=== PATIENT | male | born 1935 | race Caucasian/White ===

== ENCOUNTER 2019-02-03 17:45 | Inpatient (IN) | payer MEDICARE, OTHER ==
[~2019-02-03] VITALS: Ht 177.8 cm; Wt 84.1 kg
[2019-02-03 21:45] LABS: BASOPHILS 0.1 % (0-2); EOSINOPHILS 0 % (0-7); HEMATOCRIT 33.2 % (42.0-54.0); IMMATURE GRANULOCYTES 0.4 % (0-5); LYMPHOCYTES 4.5 % (15-50); MCH 30.4 pg (26.0-34.0); MCHC 33.1 g/dL (31.0-37.0); MCV 91.7 fL (80.0-100.0); MEAN PLATELET VOLUME 10.3 fL (7.4-10.4); MONOCYTES 7.6 % (2-11); NEUTROPHILS 87.4 % (40-80); PLATELET COUNT 344 10x3/uL (130-400); RBC 3.62 10x6/uL (4.20-6.10); RDW 13.2 % (11.5-14.5); WBC 19.8 10x3/uL (4.8-10.8)
[2019-02-03 21:55] LABS: APPEARANCE CLEAR (CLEAR); BILIRUBIN NEGATIVE (NEGATIVE); COLOR YELLOW (YELLOW); GLUCOSE 250 mg/dL (NEGATIVE); KETONE NEGATIVE (NEGATIVE); NITRITE NEGATIVE (NEGATIVE); PROTEIN NEGATIVE (NEGATIVE); SPECIFIC GRAVITY 1.015 (1.005-1.020); UROBILINOGEN NORMAL (NORMAL)
[2019-02-03 21:58] LABS: APTT 28.8 SECONDS (22.8-39.4); CALC OSMOLALITY 279 mosm/kg (275-300); CALCIUM 9.3 mg/dL (8.5-10.1); CARBON DIOXIDE 22.4 mmol/L (21.0-32.0); CHLORIDE - SERUM 101 mmol/L (98-107); CREATININE - SERUM 1.2 mg/dL (0.6-1.3); GLUCOSE 164 mg/dL (74-106); INR 1.16 (0.85-1.17); POTASSIUM - SERUM 3.9 mmol/L (3.5-5.1); PROTIME 14.2 SECONDS (11.6-15.0); SODIUM 137 mmol/L (136-145); UREA NITROGEN 19 mg/dL (7-18); eGFR NON AFRICAN AMERICAN 61 mL/min (90-120)
[2019-02-03 22:18] LABS: ALBUMIN 3.3 g/dL (3.4-5.0); ALKALINE PHOSPHATASE 80 U/L (46-116); ALT (SGPT) 32 U/L (10-68); BILIRUBIN - TOTAL 0.84 mg/dL (0.2-1.3); CKMB 2.3 U/L (0.0-3.6); CREATINE KINASE 240 UL (21-232); PRO BNP 719 pg/mL (0-450); PROTEIN - SERUM 8.1 g/dL (6.4-8.2)
[2019-02-03 22:20] LABS: TROPONIN-I < 0.017 ng/mL (0.000-0.060)
--- NOTE | 2019-02-03 23:54 | NUR ---
NEIGHBOR, FRANK CHINO,
[2019-02-04 01:22] VITALS: BP 158/69; BMI 26.6
[2019-02-04 04:56] VITALS: BP 164/72
--- NOTE | 2019-02-04 05:15 | NUR ---
[id number] rec'd in bed lying on left side.resp shallow no resp. distress observed noted will continue to monitor for any chges. in resp. status and follow current plan of care.
[2019-02-04 06:22] LABS: BASOPHILS 0 % (0-2); EOSINOPHILS 0 % (0-7); HEMATOCRIT 31.6 % (42.0-54.0); HEMOGLOBIN 10.4 g/dL (13.5-17.5); IMMATURE GRANULOCYTES 0.2 % (0-5); LYMPHOCYTES 3.5 % (15-50); MCH 29.8 pg (26.0-34.0); MCHC 32.9 g/dL (31.0-37.0); MCV 90.5 fL (80.0-100.0); MEAN PLATELET VOLUME 10.5 fL (7.4-10.4); MONOCYTES 1.4 % (2-11); NEUTROPHILS 94.9 % (40-80); PLATELET COUNT 300 10x3/uL (130-400); RBC 3.49 10x6/uL (4.20-6.10); RDW 13.1 % (11.5-14.5); WBC 16.9 10x3/uL (4.8-10.8)
[2019-02-04 06:34] LABS: ALBUMIN 2.7 g/dL (3.4-5.0); ALKALINE PHOSPHATASE 69 U/L (46-116); ALT (SGPT) 23 U/L (10-68); BILIRUBIN - TOTAL 0.81 mg/dL (0.2-1.3); CALC OSMOLALITY 278 mosm/kg (275-300); CALCIUM 8.7 mg/dL (8.5-10.1); CHLORIDE - SERUM 103 mmol/L (98-107); GLUCOSE 203 mg/dL (74-106); MAGNESIUM - SERUM 2.2 mg/dL (1.8-2.4); PHOSPHOROUS 3.3 mg/dL (2.5-4.9); POTASSIUM - SERUM 4.1 mmol/L (3.5-5.1); PROTEIN - SERUM 6.9 g/dL (6.4-8.2); SODIUM 136 mmol/L (136-145); UREA NITROGEN 15 mg/dL (7-18); eGFR NON AFRICAN AMERICAN 76 mL/min (90-120)
--- NOTE | 2019-02-04 08:15 | NUR ---
REPORT RECIEVED. RR EVEN AND UNLABORED. NO DISTRESS NOTED. PT HAS A R AC PIV INFUSING LR@125. BED LOCKED AND IN LOWEST POSITION, CALL LIGHT WITHIN REACH. WILL CTM
--- NOTE | 2019-02-04 10:56 | NUR ---
PTS VALUBLES TAKEN TO SAFE DUE TO PT BEING MILDLY CONFUSED.
[2019-02-04 12:20] VITALS: BP 139/68
[2019-02-04 12:27] VITALS: BP 108/41
[2019-02-04 14:17] VITALS: Ht 177.8 cm; Wt 84.1 kg
[2019-02-04 15:58] VITALS: BP 136/49
--- NOTE | 2019-02-04 16:09 | NUR ---
I have reviewed this patient and I concur with the Shift Assessment completed by the Licensed Practical Nurse today this shift.
--- NOTE | 2019-02-04 18:31 | NUR ---
PT CONFUSED AND PULLED IV OUT. RESITED IV TO L FA.
--- NOTE | 2019-02-04 19:54 | NUR ---
REPORT RECEIVED, WILL CONTINUE POC. PATIENT IS ALERT AND CONFUSED, COMING BACK FROM BATHROOM WITH 4TH GRADE MATH TEACHER. NO S/S OF DISTRESS OBSERVED, RR EVEN AND UNLABORED ON ROOM AIR. PATIENT DENIES NEEDS AT THIS TIME. CL IN REACH, BED LOCKED AND LOWERED. BRAYAN ALARM ON AND WORKING. WILL CTM.
[2019-02-04 20:39] VITALS: BP 157/66
--- NOTE | 2019-02-05 00:08 | NUR ---
PATIENT REPEATEDLY GETTING UP OUT OF BED, EDUCATED TO USE CALL LIGHT FOR HELP. VERY RESTLESS AND AGITATED. PAGED JARRETT DUKE, ORDERS RECEIVED. ADMINISTERED BENADRYL PER ORDERS. CL IN REACH, BED LOCKED AND LOWERED, BRAYAN ALARM ON.
[2019-02-05 00:15] VITALS: BP 150/60
--- NOTE | 2019-02-05 03:09 | NUR ---
I have reviewed this patient and I concur with the Shift Assessment completed by the Licensed Practical Nurse today this shift.
--- NOTE | 2019-02-05 04:20 | NUR ---
PATIENT MEDICATED FOR PAIN AT THIS TIME.
[2019-02-05 04:45] VITALS: BP 141/60
[2019-02-05 05:47] LABS: HEMATOCRIT 29.5 % (42.0-54.0); HEMOGLOBIN 9.7 g/dL (13.5-17.5); MCH 29.5 pg (26.0-34.0); MCHC 32.9 g/dL (31.0-37.0); MCV 89.7 fL (80.0-100.0); MEAN PLATELET VOLUME 9.9 fL (7.4-10.4); PLATELET COUNT 304 10x3/uL (130-400); RBC 3.29 10x6/uL (4.20-6.10); WBC 21.1 10x3/uL (4.8-10.8)
--- NOTE | 2019-02-05 06:12 | NUR ---
PATIENT REPEATEDLY GETTING UP THROUGH THE NIGHT. RIPPED IV TUBING IN HALF. REPLACED PRIMARY TUBING. EDUCATED PATIENT TO STAY IN BED AND TO USE HIS CALL LIGHT. CL IN REACH, BED LOCKED AND LOWERED, BRAYAN ALARM ON. WILL CTM.
[2019-02-05 06:16] LABS: CALC OSMOLALITY 282 mosm/kg (275-300); CALCIUM 8.7 mg/dL (8.5-10.1); CARBON DIOXIDE 20.7 mmol/L (21.0-32.0); CHLORIDE - SERUM 105 mmol/L (98-107); CHOL - HDL RATIO 2.2 ratio (2.3-4.9); CHOLESTEROL, TOTAL 101 mg/dL (0-200); GLUCOSE 167 mg/dL (74-106); HDL CHOLESTEROL 45 mg/dL (32-96); LDL CHOLESTEROL 48 mg/dL (0-100); LDL-HDL RATIO 1.1 ratio (1.5-3.5); MAGNESIUM - SERUM 2.1 mg/dL (1.8-2.4); PHOSPHOROUS 2.8 mg/dL (2.5-4.9); SODIUM 138 mmol/L (136-145); TRIGLYCERIDE 40 mg/dL (30-200); eGFR NON AFRICAN AMERICAN 76 mL/min (90-120)
[2019-02-05 06:27] LABS: UREA NITROGEN 21 mg/dL (7-18)
--- NOTE | 2019-02-05 07:33 | NUR ---
PT AWAKE AND VERY CONFUSED WHEN I ENTERED ROOM. BED ALARM GOING OFF, PT WAS UP IN ROOM FOLDING CLOTHES AND PACKING AWAY LITERALLY EVERYTHING IN THE ROOM, INCLUDING THE PHONE, TELEMTRY AND I/V TUBING. PHONE HAS BEEN RIPPED FROM THE WALL, WALL INSERT PIECE ON THE END IS NO LONGER THERE, STILL "PLUGGED" INTO WALL. PT HAS RIPPED HIS I/V OUT, TAKEN TELEMETRY OFF. STATES HE IS GOING HOME RIGHT NOW AND WE WILL NOT BE GETTING IN HIS WAY. PT THEN TOOK OFF AROUND THE HOSPITAL, CHECK PILOT NEVILLE DILLARD WALKED WITH HIM, EDIN ARRIVED TO HELP ESCORT THE PT BACK TO ROOM. UPON ARIVAL PT STATES HE STILL WANTS TO LEAVE BUT WILL WAIT FOR BREAKFAST. PT IS CURRENTLY PLEASANTLY CONFUSED, SITTING IN RECLINER IN FRONT OF NURSES STATION VISITING. NO COMPLAINTS/CONCERNS VOICED AT THIS TIME. ADMIN 5MG GEODON PER M.D ORDER AND CONSULTED PSYCH CALLED PSYCH AND FAXED APPROPTIATE PAPERWORK TO UNIT. PT DID NOT FIGHT GEODON, PULLED PANTS DOWN AND BENT OVER WITHOUT COMPLAINT.
[2019-02-05 07:50] VITALS: BP 147/62
--- NOTE | 2019-02-05 09:06 | NUR ---
NJ ELAM, [phone] (STEPSON)
[2019-02-05 09:51] LABS: LYMPHOCYTES 10 % (15-50); MONOCYTES 4 % (2-11); NEUTROPHILS 80 % (40-80)
[2019-02-05 09:52] LABS: CRENATED CELLS OCC
[2019-02-05 09:54] LABS: PLATELET ESTIMATE NORMAL
--- NOTE | 2019-02-05 10:12 | NUR ---
LIZZETH VANN (BIO SON) [phone]
--- NOTE | 2019-02-05 10:42 | NUR ---
PTS FAMILY MEMBERS LEFT FOR ROUGHLY 15 MINUTES, DURING THAT TIME PT IMMEDIATELY BEGAN TO WONDER THE HALLS AGAIN, A/OX1 (SELF ONLY). SPOKE TO FAMILY ON THEIR RETURN, EXPLAINED WHAT SBH IS AND THAT IT WAS NOT "GETTING TOSSED IN THE PSYCH MADERA TO BE DOPED UP". ON THAT GREATER UNDERSTANDING, FAMILY AGREED THAT IF PSYCH THOUGHT IT WAS A GOOD IDEA, HE SHOULD GO TO . [facility]. PT IS NOW PLESANTLY CONFUSED BUT REFUSING TO ALLOW ME TO START AN I/V. FAMILY STATES THEY WANT NO ANTPSYCHOTIC MEDICATIONS GIVEN AND THAT THEY WILL LEAVE A FAMILY MEMBER OR FRIEND IN ROOM AT ALL TIMES FOR THE REST OF THE DAY UNTIL DR. LUNDBERG DETERMINES WHAT TO DO NEXT. SPOKE TO PTS BIOLOGICAL SON ON THE PHONE, NUMBER ON PREVIOUS NOTE. CL IN REACH, SRX2.
[2019-02-05 10:47] VITALS: BP 136/67
--- NOTE | 2019-02-05 11:06 | NUR ---
PITA VANN (DAUGHTER) [phone]
--- NOTE | 2019-02-05 12:47 | NUR ---
I have reviewed this patient and I concur with the Shift Assessment completed by the Licensed Practical Nurse today this shift.
--- NOTE | 2019-02-05 13:36 | NUR ---
PT FAMILY MEMBERS HAVE LEFT THE ROOM FOR LUNCH, STATES THEY WILL BE BACK. BRAYAN ALARM ON, PT CONTENT TO SIT AT THIS TIME.
--- NOTE | 2019-02-05 13:40 | NUR ---
PT HAS BEGAN WONDERING AGAIN. PULLED RECLINER IN FRONT OF THE DESK, HE'S SITTING NOW CHATTING WITH STAFF.
--- NOTE | 2019-02-05 16:08 | MORECARE ---
CASE MANAGEMENT DISCHARGE SUMMARY PATIENT: BELKYS VANN UNIT: [id number] ADM DATE: 02/03/19 AGE: 83 : 35 SEX: M ROOM/BED: D.2101 AUTHOR: SHARIF,DOC PHYSICIAN: REFERRING PHYSICIAN: WENDY MCKEON MD DATE OF SERVICE: 02/05/19 Discharge Plan Patient Name: BELKYS VANN [facility] [facility] 1935 Planned Disposition: Inpatient Psych Facility Anticipated Discharge Date: 02/05/19 Discharge Date: Expected LOS: 2 Initial Reviewer: [email or web address] Initial Review Date: 02/05/2019 Generated: 02/05/19 5:07 pm Comments DCP- Discharge Planning Updated by [email or web address]: Radames Bermudez on 02/05/19 3:[address] Patient Name: BELKYS VANN Admission Status: ER Accout number: [id number] Admission Date: 02-03-2019 : 1935 Admission Diagnosis: Attending: WENDY MCKEON Current LOS: 2 Anticipated DC Date: 02-05-2019 Planned Disposition: Inpatient Psych Facility Primary Insurance: MEDICARE A & B PLANNED EXTERNAL PROVIDER: [facility] Discharge Planning Comments: CM MET WITH PT IN HALLWAY WITH BEDSIDE NURSE TO DISCUSS DISCHARGE PLANNING AND NEEDS. PT IS CONTINUALLY WANDERING HALLWAYS AND NEEDS SUPERVISION. PT REPORTS LIVING AT HOME INDEPENDENTLY AND HAS A FEMALE FRIEND THAT STAYS WITH HOME AND ASSISTS WITH COOKING AND CLEANING AT HOME. PT HAS NO MEDICAL EQUIPMENT AND NO OUTSIDE SERVICES ASSISTING IN THE HOME. CM DISCUSSED AVAILABILITY OF HOME HEALTH, REHAB SERVICES AND MEDICAL EQUIPMENT. PT DENIES DISCHARGE NEEDS, HE ADMITS TO CONFUSION AND IS IN AGREEMENT WITH TREATMENT AT [facility]. BEDSIDE NURSE INFORMED CM THAT PT HAS BEEN ASSESSED AND [facility] WILL ACCEPT; FAMILY HAS ALSO BEEN NOTIFIED AND IS IN AGREEMENT WITH DISCHARGE PLAN TO [facility]. PT AND FAMILY IN AGREEMENT WITH DISCHARGE TO [facility]. [facility] HAS ASSESSED AND WILL ACCEPT PT. CM WAITING MEDICAL STABILITY FOR DISCHARGE TO [facility]. Manifest/Order Organizer Print Orders: Radames Bermudez DCPIA - Discharge Planning Initial Assessment Updated by [id number]: Radames Bermudez on 02/05/19 4:03 pm * Is the patient Alert and Oriented? Yes * How many steps to enter\exit or inside your home? * PCP NONE * Pharmacy [facility] [address] * Preadmission Environment Home Alone * ADLs Independent * Equipment None * Other Equipment NO MEDICAL EQUIPMENT PROVIDER PREFERENCE * List name and contact numbers for known caregivers / representatives who currently or will assist patient after discharge: FRANK CHINO, FRIEND, PITA VANN, DAUGHTER, LIZZETH VANN, SON, SAHIL ELAM, STEP SON, * Verbal permission to speak to the caregivers and representatives has been obtained from the patient. Yes * Community resources currently utilized None * Please name any agencies selected above. NONE * Additional services required to return to the preadmission environment? Yes * Can the patient safely return to the preadmission environment? No * Has this patient been hospitalized within the prior 30 days at any hospital? No Patient Name: BELKYS VANN Page 36838 at 1608 All edits/amendments must be made on the electronic document DICTATION DATE: 02/05/191606 BLUEPRINT CLERK: NATALIE 02/05/191606 RPT#: [id number] DC DATE: STATUS: ADM IN [facility] [address] [place] [address] END OF REPORT
--- NOTE | 2019-02-05 17:19 | NUR ---
PTS STEPSON CAME BACK FOR ABOUT 5 MINUTES BEFORE LEAVING. PT IMMEDIATELY GOT UP TO FIND A WAY TO OUTSIDE TO FOLLOW THEM. REDIRECTED PT BUT HE IS CONSTANTLY UP AND DOWN. SPOKE WITH DR ABOUT GETTING TO CARE, PT HASBEEN ACCPETED BUT D/T HIS WBC COUNT THE . IS NOT WANTING TO SEND HIM TO SR. CARE AT THIS TIME. INFORMED DR. MCKEON THAT I CAN NOT PLACE AN I/V TO TREAT HIM WITH HIS ANTIBIOTICS OR STERIODS AND THAT . CARE STATED THEY WOULD ACCEPT HIM WITH HE ELEVATED WBC USING ORAL ANTIBIOTICS D/T THE FACT WE CAN NOT GET A SITTER FOR THE PT AND THE FAMILY IS REFUSING ANTIPSYCHOTIC MEDICATIONS. PT IS CURRENTLY CONTINULOUSLY GETTING UP TRYING TO GET IN OTHER PEOPLES ROOMS AND ASKING IF RANDOM OBJECTS ARE A BEAR.
[2019-02-05] MEDS ORDERED: Xopenex 0.63 MG INH UPD (18:08)
[2019-02-05] MEDS ORDERED: ZITHROMAX250 MG PO (18:08)
[2019-02-05] MEDS ORDERED: OMNICEF300 MG PO (18:08)
[2019-02-05] MEDS ORDERED: ACETAMINOPHEN325 MG PO (18:10)
[2019-02-05] MEDS ORDERED: TESSALON PERLE100 MG PO (18:10)
[2019-02-05] MEDS ORDERED: MUCINEX600 MG PO (18:13)
[2019-02-05] MEDS ORDERED: GLUCOPHAGE500 MG PO (18:15)
[2019-02-05] MEDS ORDERED: PROTONIX40 MG PO (18:17)
--- NOTE | 2019-02-05 18:30 | NUR ---
JOHN CAME BY AND BROUGHT 108$ IN A WALLET WITH ID'S AND SOCIAL SECURITY CARD. ALSO BROUGHT FALSE TEETH. WILL WALK PT DOWN TO SR. CARE SOON.
--- NOTE | 2019-02-05 18:39 | NUR ---
PT JOHN VELASQUEZ TOOK CELL PHONE TO HIS HOUSE TO KEEP SAFE FOR PT.
--- NOTE | 2019-02-05 18:50 | NUR ---
PT ESCORTED DOWN TO CARE WITHOUT DIFFICULTY. NEIGHBOR EVA ASSISTED. PT BEING CHECKED IN NOW. GLASSES, WALLET, AND DENTURES WITH HIM.
--- NOTE | 2019-02-06 13:14 | CN ---
PATIENT NAME:BELKYS RUIZ MEDICAL RECORD: [id number] : 35 LOCATION:D. [id number] ADMIT DATE: 02/03/19 ACCOUNT: [id number] CONSULTING PHYSICIAN: CLAUS LUNDBERG MD REFERRING PHYSICIAN: WENDY MCKEON MD DATE OF CONSULTATION: 02/05/2019 HISTORY OF PRESENT ILLNESS: Mr. Ruiz is an 83-year-old man who is admitted to the hospital secondary to pneumonia. He has been confused and wandering the halls. The nurse landscape supervisor from the geriatric unit saw him and has discussed the case with me. I think he is appropriate for inpatient psychiatric care because of his agitation, but he is refusing the placement. He may well clear once his pneumonia resolves. I am going to order a p.r.n. dose of Geodon to help with his agitation. I have no ability to evaluate his social situation and do not know if he is appropriate to be living independently. If there are significant or serious concerns that may be necessary to involuntarily place him on the geriatric unit to sort these matters out. PLAN: At this time, I am simply going to order p.r.n. Geodon to assist with his agitation and we will monitor the situation. Please consult me if required. TRANSINT:[id number] Voice Confirmation ID: [id number] DOCUMENT ID: [id number] CLAUS LUNDBERG MD at 1314 CC: [id number] DICTATION DATE: 02/05/19 174 CERTIFIED BENCH JEWELER TECHNICIAN: 02/05/19 1833 DIS IN 02/05/19 [facility] [address] [place] [address]
--- NOTE | 2019-02-08 09:19 | MORECARE ---
CASE MANAGEMENT DISCHARGE SUMMARY PATIENT: BELKYS VANN UNIT: [id number] ADM DATE: 02/03/19 AGE: 83 : 35 SEX: M ROOM/BED: D.2109 AUTHOR: SHARIF,DOC PHYSICIAN: REFERRING PHYSICIAN: WENDY MCKEON MD DATE OF SERVICE: 02/08/19 Discharge Plan Patient Name: BELKYS VANN [facility] [facility] 1935 Planned Disposition: Inpatient Psych Facility Anticipated Discharge Date: 02/05/19 Discharge Date: 02/05/2019 Expected LOS: 2 Initial Reviewer: [email or web address] Initial Review Date: 02/05/2019 Generated: 02/08/19 10:18 am Comments DCP- Discharge Planning Updated by [email or web address]: Radames Bermudez on 02/05/19 3:[address] Patient Name: BELKYS VANN Admission Status: ER Accout number: [id number] Admission Date: 02-03-2019 : 1935 Admission Diagnosis: Attending: WENDY MCKEON Current LOS: 2 Anticipated DC Date: 02-05-2019 Planned Disposition: Inpatient Psych Facility Primary Insurance: MEDICARE A & B PLANNED EXTERNAL PROVIDER: [facility] Discharge Planning Comments: CM MET WITH PT IN HALLWAY WITH BEDSIDE NURSE TO DISCUSS DISCHARGE PLANNING AND NEEDS. PT IS CONTINUALLY WANDERING HALLWAYS AND NEEDS SUPERVISION. PT REPORTS LIVING AT HOME INDEPENDENTLY AND HAS A FEMALE FRIEND THAT STAYS WITH HOME AND ASSISTS WITH COOKING AND CLEANING AT HOME. PT HAS NO MEDICAL EQUIPMENT AND NO OUTSIDE SERVICES ASSISTING IN THE HOME. CM DISCUSSED AVAILABILITY OF HOME HEALTH, REHAB SERVICES AND MEDICAL EQUIPMENT. PT DENIES DISCHARGE NEEDS, HE ADMITS TO CONFUSION AND IS IN AGREEMENT WITH TREATMENT AT [facility]. BEDSIDE NURSE INFORMED CM THAT PT HAS BEEN ASSESSED AND [facility] WILL ACCEPT; FAMILY HAS ALSO BEEN NOTIFIED AND IS IN AGREEMENT WITH DISCHARGE PLAN TO [facility]. PT AND FAMILY IN AGREEMENT WITH DISCHARGE TO [facility]. [facility] HAS ASSESSED AND WILL ACCEPT PT. CM WAITING MEDICAL STABILITY FOR DISCHARGE TO [facility]. Home Care Giver: Radames Bermudez DCPIA - Discharge Planning Initial Assessment Updated by [email or web address]: Radames Bermudez on 02/05/19 4:03 pm * Is the patient Alert and Oriented? Yes * How many steps to enter\exit or inside your home? * PCP NONE * Pharmacy [facility] [address] * Preadmission Environment Home Alone * ADLs Independent * Equipment None * Other Equipment NO MEDICAL EQUIPMENT PROVIDER PREFERENCE * List name and contact numbers for known caregivers / representatives who currently or will assist patient after discharge: FRANK CHINO, FRIEND, PITA VANN, DAUGHTER, LIZZETH VANN, SON, SAHIL ELAM, STEP SON, * Verbal permission to speak to the caregivers and representatives has been obtained from the patient. Yes * Community resources currently utilized None * Please name any agencies selected above. NONE * Additional services required to return to the preadmission environment? Yes * Can the patient safely return to the preadmission environment? No * Has this patient been hospitalized within the prior 30 days at any hospital? No Last DP export: 02/05/19 3:08 Patient Name: BELKYS VANN Page 19409 at 0919 All edits/amendments must be made on the electronic document DICTATION DATE: 02/08/19917 TICKETING AGENT: NATALIE 02/08/19917 RPT#: [id number] DC DATE:02/05/19 STATUS: DIS IN [facility] [address] [place] [address] END OF REPORT
== END 2019-02-05 18:52 | disposition short-term general hospital (02) | DRG 193 ==
LOC: D.ER 17:45 → D.M2 22:32 → EDBD 22:32 → D.M2 02-05 18:52
PROVIDERS: Family Medicine; ADMIT Internal Medicine Nephrology; ATTEND Internal Medicine Nephrology
DX: J18.9 Pneumonia, unspecified organism (principal); J96.01 Acute respiratory failure with hypoxia; G93.41 Metabolic encephalopathy; D64.9 Anemia, unspecified; R45.1 Restlessness and agitation

== ENCOUNTER 2019-02-05 18:55 | Inpatient (IN) | payer MEDICARE, OTHER ==
--- NOTE | 2019-02-05 18:50 | NUR ---
RECEIVED PATIENT FROM [facility] ACCOMPANIED BY FRIEND AND NURSE. ADMITTED TO ROOM 1125 WITH INCREASED CONFUSION. PATIENT VERY CONFUSED AND KEPT ASKING ABOUT HIS CELL PHONE AND RELATING HE DIDN'T CALL HIS . FRIEND TOLD STAFF HE HAS A GIRLFRIEND BUT SHE WAS LEAVING HIM TODAY BUT HE DOES NOT KNOW THIS. COOPERATIVE WITH ADMISSION PROCESS HOWEVER IS A POOR HISTORIAN. LIZZETH VANN, SON WHICH LIVES IN [place] CALLED AND HE DID NOT KNOW IF PATIENT WAS CURRENT ON FLU AND PNEUMONIA VACCINES WHICH PRINCESS WAS ADMITTED INITIALLY WITH PNEUMONIA. ADMISSIONS PAPERS COMPLETED AND PATIENT WAS SHOWN TO HIS ROOM.
[~2019-02-05 18:55] MED LIST: ACETAMINOPHEN325 MG PO; GLUCOPHAGE500 MG PO; MUCINEX600 MG PO; OMNICEF300 MG PO; PROTONIX40 MG PO; TESSALON PERLE100 MG PO; Xopenex 0.63 MG INH UPD; ZITHROMAX250 MG PO
[2019-02-06 00:48] VITALS: BP 144/78; BMI 25.1
[2019-02-06 06:52] LABS: CHOL - HDL RATIO 2.7 ratio (2.3-4.9); LDL-HDL RATIO 1.4 ratio (1.5-3.5); THYROID STIMULATING HORMONE 2.17 uIU/mL (0.36-3.74)
--- NOTE | 2019-02-06 08:00 | NUR ---
REC'D PT SITTING IN HALLWAY SOCIALIZING WITH PEER. AWAITING BREAKFAST. PT IS CONFUSED AND ORIENTED TO SELF. PT HAS POOR INSIGHT. PT ASK WHY HE IS HERE AND WHAT GOT HIM HERE. NURSE EXPLAINED. PT VERBALIZED UNDERSTANDING. WILL CONT PLAN OF CARE.
[2019-02-06 08:29] VITALS: BP 132/60
[2019-02-06 09:30] VITALS: BP 132/60
--- NOTE | 2019-02-06 10:05 | NUR ---
SPOKE WITH PT FRIEND ABOUT HOW HE IS DOING AND VISITING HOURS. HE WAS EXPLAINING HOW HE WAS CONFUSED AND RIPPED DEVICES OUT OF THE WALL IN THE E.R. HE WOULD BRING CLOTHES FOR HIM SOMETIME TODAY AND WOULD VISIT HIM SOMETIME TODAY. NURSE STATED OKAY THAT WOULD BE FINE AND EXPLAINED THE VISITING HOURS.
--- NOTE | 2019-02-06 10:30 | NUR ---
SPOKE WITH PT SON FROM [place]. PT CONSENTED TO GIVE PASSCODE. SON ASKED HE WAS DOING. NURSE EXPLAINED HE WAS DOING WELL, PARTICIPATED WELL AND EAT BREAKFAST. HE SAID HE WOULD CALL AT PHONE CALL TIME TO AVOID BREAKING THE RULES.
[2019-02-06 12:21] VITALS: Wt 72.3 kg
--- NOTE | 2019-02-06 12:33 | NUR ---
PT FRIEND BROUGHT CLOTHES FOR HIM. CLOTHES TO BE INVENTORY.
[2019-02-06 20:00] VITALS: BP 140/75
--- NOTE | 2019-02-06 21:36 | NUR ---
PATIENT IS CONFUSED, PLEASANT, CAN MAKE NEEDS KNOWN, QUIET, TENDS TO STAY TO HIMSELF. COMPLIANT WITH MEDS
--- NOTE | 2019-02-07 08:00 | NUR ---
REC'D PT PACING THE HALLWAY BY THE NURSES STATION. PT IS AWAKE AND AlERT TO PERSON ONLY. CALM AND COOPERATIVE WITH ASSESSMENT. PRESCRIBED MEDS PROVIDED ORDERED. MED COMPLIANT. PT REFUSES TO CHANGE CLOTHES OR LET STAFF WASH HIS CLOTHES AT THIS TIME. REDIRECT AND REORIENT NEEDED. FALL PRECAUTIOSN IN PLACE. WILL CPOC.
[2019-02-07 11:03] VITALS: BP 151/83
--- NOTE | 2019-02-07 11:07 | PSY ---
PATIENT NAME:BELKYS VANN MEDICAL RECORD: [id number] : 35 LOCATION:[facility]A [facility] ADMISSION DATE: 02/05/19 ACCOUNT: [id number] PSYCHIATRIC EVALUATION DATE OF EVALUATION: 02/06/19 IDENTIFYING DATA: The patient is 83 years old and he is admitted to the hospital on a voluntary basis. CHIEF COMPLAINT: Confusion. HISTORY OF PRESENT ILLNESS: The patient presented to the Emergency Room a couple of days ago short of breath. He was diagnosed with pneumonia and admitted to the medical floor for IV antibiotics and hydration. While on the medical floor, he showed clear evidence of severe confusion. He was wandering about, very agitated at times and difficult to redirect. The nursing staff on the medical unit was unable to handle him and referred him to Mental Health. He was evaluated by our nurse manager social work and I was contacted and reviewed the case. He was subsequently referred for admission here. On interview, the patient is cooperative and polite, but clearly confused. He makes a couple of delusional statements about a neighbor possibly taking some of his money. He denies any thoughts of harming himself or others. He has no evidence of psychotic symptoms that are overt. PAST MEDICAL HISTORY: Significant for diabetes. PAST PSYCHIATRIC HISTORY: Denied by the patient. FAMILY HISTORY: Unknown. ALLERGIES: No known drug allergies. CURRENT MEDICATIONS: Include Omnicef, Zithromax, Protonix, Mucinex, and Glucophage. SOCIAL HISTORY: The patient tells me he has been twice. He apparently had 4 children, 2 of whom are now . He says he has 2 sons that live in [place]. He has no real contact with them. 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 He apparently has a girlfriend or significant other that has some involvement in caring for him, but the extent of this is unknown. He also has a neighbor whom he thinks has taken some of his money or he has given money to perhaps inappropriately, I am unsure. He does have a history of alcohol use, perhaps abuse, it is unclear. He does say he has not drank for 25 years. He has no history of legal entanglements and apparently functioned reasonably well socially and occupationally. MENTAL STATUS EXAMINATION: The patient is awake, alert and oriented to person and place, but not to situation. He knows the year, but somewhat tentatively. He does not know the month. His mood is euthymic. His affect is generally appropriate. Thought processes are disorganized with his memory, concentration, and abstraction abilities impaired. He has no thoughts of harming himself or others and perhaps some questionable delusions or perhaps it is confusion regarding a neighbor. ASSESSMENT: AXIS I: Major neurocognitive disorder of the Alzheimer's type. AXIS II: Deferred. AXIS III: Diabetes, pneumonia. AXIS IV: Moderate. AXIS V: Global assessment of functioning 35. PLAN: At this time, the patient is admitted to the hospital secondary to confusion and some agitation associated with a dementing illness. It does not appear that he has been diagnosed with dementia in the past. He clearly has evidence of significant cognitive impairment. His social situation will need to be evaluated since he is apparently living independently with minimal support from a girlfriend. He will be treated with memory enhancing and mood stabilizing medications. His long-term prognosis is guarded. TRANSINT:[id number] Voice Confirmation ID: [id number] DOCUMENT ID: [id number] CLAUS LUNDBERG MD at 1107 CC: [id number] DICTATION DATE: 02/06/19 1344 HOSTLER HELPER: 02/06/19 1521 ADM IN [facility] [address] [place] [id number]
--- NOTE | 2019-02-07 14:37 | NUR ---
PT VERY AGGRESSIVE AND DEMANDING WITH STAFF. PT IS SHAKING DOORS AND DEMANDING TO LEAVE UNIT. PT REFUSES PO ATIVAN 0.5MG. ATIVAN 0.5MG IM GIVEN PER ORDER. UNABLE TO REDIRECT AT THIS TIME.
--- NOTE | 2019-02-07 17:36 | NUR ---
MR. CHINO CAME ABOUT 1400 CAME WITH A NEW SET OF CLOTHES. CLOTHES INVENTORY AND NAMES WRITTEN IN CLOTHES. FRIEND SAID HE WOULD SPEAK TO HIM ABOUT A SHOWER AT PHONE TIME.
--- NOTE | 2019-02-07 18:00 | NUR ---
PT FAMILY CALLED AND ASKED IF HE COULD TAKE A SHOWER. HIS FRIEND SPOKE WITH HIM TO TAKE A SHOWER. HE AGREED TO FAMILY. STAFF OFFERED PT A SHOWER 3X. PT REFUSED TO TAKE A SHOWER. WILL OFFER AT ANOTHER TIME.
[2019-02-07 18:57] VITALS: BP 113/62
--- NOTE | 2019-02-07 21:30 | NUR ---
RECEIVED IN DAYROOM. WALKING ABOUT. RESTLESS AT TIMES. VERY CONFUSED. CALM AND COOPERATIVE WITH CARE AND ASSESSMENT. REDIRECT AND REORIENT NEEDED. IN BEDROOM AT THIS TIME GETTING READY FOR BED. CONTINUE PLAN OF CARE
--- NOTE | 2019-02-08 08:00 | NUR ---
PT IS AWAKE AND ALERT TO PERSON ONLY. CALM AND COOPERATIVE WITH ASSESSMENT. PRESCRIBED MEDS PROVIDED ORDERED. MED COMPLIANT. PT HAS POOR INSIGHT INTO SITUATION. REDIRECT AND REORIENT NEEDED. FALL PRECAUTIONS IN [place]. WILL CPOC.
[2019-02-08 09:13] VITALS: BP 127/74
--- NOTE | 2019-02-08 15:38 | PN ---
PATIENT:BELKYS VANN MEDICAL RECORD: [id number] LOCATION:[facility] ADMISSION DATE: 02/05/19 PROGRESS NOTE DATE OF SERVICE: 02/07/2019 SUBJECTIVE: The patient's case was discussed with staff. He has no new complaint. OBJECTIVE: The patient is quite confused. He is unable to formulate any understanding of what is going on in his environment. He clearly is demented and clearly is advanced. ASSESSMENT: Dementia. PLAN: The patient will be started on Aricept to assist with his thought disorganization and memory impairment. He will be monitored for clinical changes associated with its use. TRANSINT:[id number] Voice Confirmation ID: [id number] DOCUMENT ID: [id number] CLAUS LUNDBERG MD at 1538 CC: [id number] DICTATION DATE: 02/07/19 1135 BUSINESS SERVICES TECH: 02/07/19 1217 ADM IN [place] [id number] [place] [id number]
[2019-02-08 20:00] VITALS: BP 167/77
--- NOTE | 2019-02-08 21:28 | NUR ---
RECEIVED IN DAYROOM. WALKING ABOUT SOCIALIZING WITH PEERS. CALM AND COOPERATIVE WITH CARE AND ASSESSMENT. PACING AT TIMES. REDIRECT AND REORIENT NEEDED. RESTINGIN BED WITH EYES CLOSED. CONTINUE PLAN OF CARE
--- NOTE | 2019-02-09 00:52 | NUR ---
PATIENT AT NURSES STATION. STATES HE CAN'T SLEEP BECAUSE HE IS WORRYING ABOUT WHATS WRONG WITH HIS MIND. HE STATES HE CAN TELL THERE IS SOMETHING WRONG WITH HIS THINKING. PRN ATIVAN 0.5 MG PO GIVEN FOR ANXIETY. ASSISTED BACK TO BED. REINFORCE THAT HE IS UNDER DOCTOR CARE AND THEY WILL BE WORKING TO GET HIM BETTER. PATIENT WAS VERY THANKFUL FOR CARE AND SUPPORT FROM STAFF.
--- NOTE | 2019-02-09 02:00 | NUR ---
RESTING QUIETLY IN BED WITH EYES OPEN.
[2019-02-09 08:11] LABS: RAPID PLASMA REAGIN Non Reactive (Non Reactive)
[2019-02-09 08:58] VITALS: BP 153/85
--- NOTE | 2019-02-09 10:42 | NUR ---
RECEIVED PT. 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 POOR SHORT-TERM MEMORY. NO AGGRESSION NOTED. COOPERATIVE WITH POC. CONT POC DIRECTED.
--- NOTE | 2019-02-09 13:51 | NUR ---
Nutrition Follow-up: Diet: Diabetic diet [facility] soft, thin liquids PO intake: ~87% average x last 9 meals Chart reviewed. Pt is followed by ST for swallowing safety. Last BM = none recorded since admit x 4 days Wt: 165# (02/07/19) Significant meds: metformin, abx. Labs reviewed. Skin WNL. Continue diabetic diet PO diet consistency per ST. Consider bowel regimen to promote BM regularity. RD Following.
--- NOTE | 2019-02-09 15:03 | NUR ---
FAMILY HERE TO VISIT PATIENT. GOOD VISIT ENJOYED BY ALL.
--- NOTE | 2019-02-09 15:36 | PN ---
PATIENT:BELKYS VANN MEDICAL RECORD: [id number] LOCATION:MARÍA Vazquez ADMISSION DATE: 02/05/19 PROGRESS NOTE DATE OF SERVICE: 02/08/2019 SUBJECTIVE: The patient's case was discussed with staff. He has no new complaint. OBJECTIVE: The patient is in good behavioral control. He does have limited insight about his situation. He has not been aggressive. ASSESSMENT: Dementia. PLAN: Brief supportive and educational interventions were made. The patient is clearly in need of 76-ejcu-a-day supervision. What is not clear at this point is which setting will be the least restrictive. TRANSINT:[id number] Voice Confirmation ID: [id number] DOCUMENT ID: [id number] CLAUS LUNDBERG MD at 1536 CC: [id number] DICTATION DATE: 02/08/19 1629 PULVI MIXER OPERATOR: 02/08/19 1634 ADM IN [place] [id number] [place] [id number]
[2019-02-09 22:08] VITALS: BP 158/81
--- NOTE | 2019-02-09 23:21 | NUR ---
RECEIVED IN HALLWAY AT NURSES STATION. TALKING WITH STAFF. CONFUSED. POOR SHORT TERM MEMORY. CALM AND COOPERATIVE WITH CARE AND ASSESSMENT. REDIRECT AND REORIENT NEEDED. IN BEDROOM AWAKE AT THIS TIME. CONTINUE PLAN OF CARE
[2019-02-10 08:48] VITALS: BP 134/71
--- NOTE | 2019-02-10 12:43 | PN ---
PATIENT:BELKYS VANN MEDICAL RECORD: [id number] LOC[facility] ADMISSION DATE: 02/05/19 PROGRESS NOTE DATE OF SERVICE: 02/09/2019 SUBJECTIVE: The patient's case was discussed with staff. He has no new complaint. OBJECTIVE: The patient is confused and impaired cognitively. He has pretty limited insight about his condition. ASSESSMENT: Dementia. PLAN: The patient will be given a low dose of Trilafon to assist with his thought disorganization. He will be monitored for clinical changes associated with its use. His sons are here from [place] today. I have discussed the situation with them and answered their questions. It remains to be determined what the course of action will be, but a number of possible solutions were discussed. TRANSINT:[id number] Voice Confirmation ID: [id number] DOCUMENT ID: [id number] CLAUS LUNDBERG MD at 1243 CC: [id number] DICTATION DATE: 02/09/19 1543 PUMP RUNNER: 02/09/19 1736 ADM IN [place] [id number] [place] [id number]
--- NOTE | 2019-02-10 14:36 | NUR ---
RECEIVED PT IN DINING ROOM FOR B'FAST, ALERT, CALM, COOPERATIVE, VERY PLEASANT BUT QUITE CONFUSED. MEDS ADMIN PER ORDERS WITH COMPLETE MED COMPLIANCE NOTED. CONT POC DIRECTED.
[2019-02-10] MEDS ORDERED: DONEPEZIL HCL5 MG PO (16:25)
[2019-02-10] MEDS ORDERED: NIFEREX-150 CAP1 CA3 PO (16:25)
[2019-02-10] MEDS ORDERED: PERPHENAZINE2 MG PO (16:26)
--- NOTE | 2019-02-10 20:26 | NUR ---
PATIENT IS CALM, CONFUSED, STAYS TO HIMSELF MOST OF THE TIME, EASILY DIRECTED, COMPLIANT WITH MEDS, NO ADVERSE REACTION NOTED TO MEDS. WILL FOLLOW POC
[2019-02-10 22:00] VITALS: BP 166/75
--- NOTE | 2019-02-10 22:12 | NUR ---
COME TO NURSES STATION COMPLAINING OF HEADACHE. TYLENOL 650MG PO ADMINISTERED.
--- NOTE | 2019-02-10 22:58 | NUR ---
COME TO NURSE'S STATION WITH COMPLAINTS OF NOT BEING ABLE TO SLEEP. RELATES FEELS LIKE SOMETHING HAS A HOLD OF HIM AND WON'T LET GO. WORRIED THAT HE WON'T BE READY IN THE MORNING WHEN HIS SON IS READY TO LEAVE FOR [place]. ATTEMPTED TO REASSURE PATIENT WHEN IT IS TIME FOR HIM TO LEAVE IN THE MORNING EVERYTHING WILL BE READY. TOLD PATIENT HIS SON IS NOT LEAVING WITHOUT HIM THAT IS THE REASON HIS SON CAME TO [place] WAS TO GET HIM AND TAKE HIM TO [place] WITH THEM. ATIVAN PO ADIMINISTERED WITHOUT DIFFCULTY.
[2019-02-11 09:00] VITALS: BP 142/71
--- NOTE | 2019-02-11 10:33 | NUR ---
Called and spoke to the patient's son to ask what Pharmacy he would like his Dad's medications sent. The patient's son requested that we send medications to [facility] on [address]. Will fax them now.
--- NOTE | 2019-02-11 11:59 | NUR ---
B) The patient is awake and alert, he has poor insight into his situation. He ambulates, but he is confused. He is worried about his car and his homes. Staff has talked to him and explained to him that he is being taken care of by his sons. I) Provide prescribed meds. R) The patient is compliant with meds. P) Continue POC.
--- NOTE | 2019-02-11 14:26 | PN ---
PATIENT:BELKYS VANN MEDICAL RECORD: [id number] LOC[facility] ADMISSION DATE: 02/05/19 PROGRESS NOTE DATE OF SERVICE: 02/10/2019 SUBJECTIVE: The patient's case was discussed with staff. He has no new complaint. OBJECTIVE: The patient is confused, but pleasant. He is tolerating his medicines well. ASSESSMENT: No change in diagnoses. PLAN: The patient will be transitioned out of the hospital tomorrow. He is going to go home with his son. Two sons are here from [place] and they plan to take him back to [place] to live with them. He thinks this is splendid plan and he will be discharged to their care tomorrow. It has been explained to them the importance of followup. The oldest son says he understands and can make arrangements for his father to receive medical care once they get to [place]. TRANSINT:[id number] Voice Confirmation ID: [id number] DOCUMENT ID: [id number] CLAUS LUNDBERG MD at 1426 CC: [id number] DICTATION DATE: 02/10/19 1625 LAMINATED PLASTICS ASSEMBLER AND GLUER: 02/10/19 2048 ADM IN [facility] [address] [place] [id number]
--- NOTE | 2019-02-11 15:15 | NUR ---
The patient's two sons are here to take their Dad home and then they will take him back out to [place] with them. Instructions about medications provided. Explained that all of his meds were sent to [facility] on [address]. Also explained that the patient will need an appointment with a PCP within one week from this discharge. All of the patient's belongings are accounted and given to the sons. The sons did not have any idea what physician the patient will see. The patient ambulates to the vehicle with staff and sons by his side. He is now d/c'd from the hospital.
--- NOTE | 2019-02-12 14:37 | PN ---
PATIENT:BELKYS VANN MEDICAL RECORD: [id number] LOCATION:[facility] ADMISSION DATE: 02/05/19 PROGRESS NOTE DATE OF SERVICE: 02/11/2019 SUBJECTIVE: The patient's case was discussed with staff. He has no new complaint. OBJECTIVE: The patient is confused with poor insight about his condition. ASSESSMENT: Dementia. PLAN: Current medicines have been reviewed and will be maintained. Long-term prognosis is guarded. TRANSINT:[id number] Voice Confirmation ID: [id number] DOCUMENT ID: [id number] CLAUS LUNDBERG MD at 1437 CC: [id number] DICTATION DATE: 02/11/19 1531 BEAM SAW OPERATOR: 02/11/19 1752 DIS IN 02/11/19 [place] [id number] [place] [address]
--- NOTE | 2019-02-26 15:57 | DS ---
PATIENT:BELKSY VANN :35 MEDICAL RECORD: [id number] DISCHARGE SUMMARY ADMISSION DATE: 02/05/19 DISCHARGE DATE: 02/11/19 IDENTIFYING DATA: The patient is 83 years old and he is admitted to the hospital on a voluntary basis because of confusion. The patient presented to the Emergency Room a couple of days ago short of breath. He was diagnosed with pneumonia and was admitted to the medical floor for antibiotics and hydration. While on the medical floor, he showed evidence of severe confusion. He was wandering about, agitated, and difficult to redirect. Nursing staff was unable to handle him. On interview, he is cooperative, but confused. He made delusional statements about a neighbor. He had no overt evidence of active hallucinations. HOSPITAL COURSE: The patient was admitted to the hospital and fully evaluated from both a medical, psychological, and social standpoint. He was treated with both mood stabilizing and memory enhancing medications. He did show improvement through the course of his hospitalization and subsequently was transitioned back to a setting where he could receive 13-aclg-q-day supervision. DISCHARGE DIAGNOSES: AXIS I: Major neurocognitive disorder of the Alzheimer's type. AXIS II: Deferred. AXIS III: Diabetes and pneumonia. AXIS IV: Moderate stressors. AXIS V: Global assessment of functioning is 40. PLAN: At the time of discharge, the patient was in good behavioral control with limited insight about his condition. He was tolerating his medicines well. TRANSINT:[id number] Voice Confirmation ID: [id number] DOCUMENT ID: [id number] CLAUS LUNDBERG MD at 1557 CC: [id number] DICTATION DATE: 02/25/191811 HANDLE MACHINE OPERATOR: 02/26/19 0652 DIS IN 02/11/19 [place] [id number] [place] [address]
== END 2019-02-11 15:26 | disposition home or self-care (01) | DRG 56 ==
LOC: D.PSYCH 18:55
PROVIDERS: ADMIT Psychiatry & Neurology Psychiatry; ATTEND Psychiatry & Neurology Psychiatry
DX: G30.9 Alzheimer's disease, unspecified (principal); J13 Pneumonia due to Streptococcus pneumoniae; F02.81 Dementia in other diseases classified elsewhere, unspecified severity, with behavioral disturbance; D53.8 Other specified nutritional anemias; E11.22 Type 2 diabetes mellitus with diabetic chronic kidney disease; N18.2 Chronic kidney disease, stage 2 (mild); M25.561 Pain in right knee; H91.92 Unspecified hearing loss, left ear; R13.10 Dysphagia, unspecified